=== PATIENT | female | born 1970 | race African-American/Black ===

== ENCOUNTER 2023-08-10 14:08 | Emergency (ER) | payer OTHER ==
[~2023-08-10] VITALS: Ht 170.2 cm; Wt 108.0 kg
[2023-08-10 14:36] VITALS: TEMP 98.5; O2SAT 98
[2023-08-10] MEDS ORDERED: KETOROLAC 60MG/2ML VIAL IM ONE (15:30)
[2023-08-10] MEDS ORDERED: ACETAMINOPHEN 325MG TABLET PO ONE (15:30)
[2023-08-10] MEDS ORDERED: KETOROLAC 60MG/2ML VIAL IM NR (16:17)
[2023-08-10] MEDS ORDERED: ACETAMINOPHEN 325MG TABLET PO NR ×2 (16:18)
[2023-08-10 16:46] VITALS: BP 132/81; PULSE 90; RESP 20
== END 2023-08-10 17:12 | disposition home or self-care (01) ==
LOC: ER 14:08
DX: S92.511A Displaced fracture of proximal phalanx of right lesser toe(s), initial encounter for closed fracture (principal); V89.2XXA Person injured in unspecified motor-vehicle accident, traffic, initial encounter; Y93.89 Activity, other specified; Y92.89 Other specified places as the place of occurrence of the external cause; Y99.8 Other external cause status
CPT/HCPCS: 73620; 96372; 99283; J1885; Z7610